=== PATIENT | male | born 1935 | race Caucasian/White ===

== ENCOUNTER 2016-08-12 13:14 | Emergency (ER) | payer OTHER ==
[~2016-08-12] VITALS: Ht 170.2 cm; Wt 68.5 kg
[~2016-08-12 13:14] MED LIST: ALLO100T PO; ASPI81 PO; BRIM0.2S EACH EYE; ENAL20TA81 PO; ENOX60P SQ; GABA300 PO; METO50TA PO; MEVA40TA PO; MORP30TA3 PO; NOVOLOGP2 SQ; NOVOLOGSS SQ; NOVONP2 SQ; PROS5TAB2 PO; TAMS0.4C67 PO; WARF2TAB PO
[2016-08-12 13:23] VITALS: BP 107/58; PULSE 72; RESP 16; TEMP 98.3; O2SAT 100
--- NOTE | 2016-08-12 13:53 | PD ---
HPI Chief Complaint: General Weakness Time Seen by Provider: 13:22 Travel History International Travel<30 days: No Contact w/Intl Traveler<30days: No Traveled to known affect area: No History of Present Illness HPI This patient complains of generalized weakness. Duration is 2-3 weeks. Severity is moderate. He denies fever or vomiting or diarrhea. He is not having headache or chest pain or abdominal pain. He has chronic A. fib on Coumadin. No alleviating factors. He has chronic leg swelling and has weeping from his right leg sore. PFSH Past Medical History Hx Anticoagulant Therapy: Yes Arthritis: Yes Atrial Fibrillation: Yes Blood Disorders: No Anxiety: Yes Depression: No Heart Rhythm Problems: Yes (A FIB) Cancer: No Cardiovascular Problems: Yes (htn on med, a-fib) High Cholesterol: Yes Congestive Heart Failure: No COPD: No Diabetes: Yes Patient Takes Glucophage: No Endocrine: No Gastrointestinal Disorders: No Gout: Yes Genitourinary: No Hepatitis: No Hiatal Hernia: No Hypertension: Yes Immune Disorder: No Implanted Vascular Access Dvce: Yes Musculoskeletal: Yes (ARTHRITIS) Neurologic: No Psychiatric: No Reproductive: No Respiratory: No Integumentary: Yes (hx of cellulitis) Thyroid Disease: No Tetanus Vaccination: < 5 Years Influenza Vaccination: Yes Past Surgical History Abdominal Surgery: Yes (SPINAL CORD STIMULATIOR IMPLANT, SARAH) AICD: No Body Medical Devices: SPINAL CORD STIMULATOR Cardiac Surgery: No Cholecystectomy: Yes Ear Surgery: No Endocrine Surgery: No Eye Surgery: No Genitourinary Surgery: No Gynecologic Surgery: No Joint Replacement: No Oral Surgery: No Pacemaker: No Thoracic Surgery: No Other Surgery: Yes Social History Alcohol Use: No (occas. beer) Tobacco Use: No Substance Use: No Allergies-Medications (Allergen,Severity, Reaction): Coded Allergies: Contrast Media (Verified Allergy, Severe, SWELLING, 08/12/16) Nifedipine (Verified Allergy, Severe, 08/12/16) unknown Reported Meds & Prescriptions Reported Meds & Active Scripts Active Novolin N (Insulin Isophane (Human)) 1 Ml Inj 4 Units SQ BID@,17 30 Days Lovenox (Enoxaparin Sodium) 60 Mg/0.6 Ml Inj 75 Mg SQ BID 7 Days Novolog Insulin Supplemental Scale (Insulin Aspart) 100 /Ml Inj 1 Units SQ ACHS SLIDING SCALE 30 Days Reported Brimonidine Tartrate 0.2 % Jen 1 Drop EACH EYE TID Proscar (Finasteride) 5 Mg Tab 5 Mg PO HS Metoprolol Tartrate 50 mg (Metoprolol Tartrate) 50 Mg Tab 50 Mg PO HS Metoprolol Tartrate 50 mg (Metoprolol Tartrate) 50 Mg Tab 100 Mg PO DAILY Novolog (Insulin Aspart) 100 Units/ML Inj 10 Units SQ DAILY Aspirin 81 Mg Tab 162 Mg PO DAILY Lovastatin 40 Mg Tab 40 Mg PO HS Warfarin Sodium 2 mg (Warfarin Sodium) 2 Mg Tab 2 Mg PO DAILY RESTART THIS SUNDAY Allopurinol 100 Mg Tab 50 Mg PO DAILY PRN Neurontin (Gabapentin) 300 Mg Cap 300 Mg PO HS Flomax (Tamsulosin HCl) 0.4 Mg Cap 0.4 Mg PO DAILY Oramorph Sr (Morphine Sulfate) 30 Mg Tab 30 Mg PO TIDPRN Vasotec (Enalapril Maleate) 20 Mg Tab 5 Mg PO DAILY Review of Systems General / Constitutional: No: Fever Eyes: No: Visual changes HENT: No: Headaches Cardiovascular: Positive: Irregular Rhythm, Edema, No: Chest Pain or Discomfort Respiratory: No: Shortness of Breath Gastrointestinal: No: Abdominal Pain Genitourinary: No: Dysuria Musculoskeletal: Positive: Weakness, Edema, No: Pain Skin: No Rash Neurologic: Positive: Weakness Psychiatric: No: Depression Endocrine: No: Polydipsia Hematologic/Lymphatic: No: Easy Bruising Physical Exam Narrative GENERAL: Well-nourished, well-developed patient in no apparent distress. SKIN: Focused skin assessment reveals no rash and nodules. Skin is Warm and dry. HEAD: Atraumatic. Normocephalic. EYES: Pupils equal and round. No scleral icterus. No injection or drainage. ENT: No nasal bleeding or discharge. Mucous membranes pink and moist. NECK: Trachea midline. No JVD. CARDIOVASCULAR: Irregularly irregular rhythm. No murmur appreciated. RESPIRATORY: No accessory muscle use. Clear to auscultation. Breath sounds equal bilaterally. GASTROINTESTINAL: Abdomen soft, non-tender, nondistended. Hepatic and splenic margins not palpable. MUSCULOSKELETAL: No obvious deformities. No clubbing. No cyanosis. Advanced pitting edema of the feet and lower legs up to the knee. Edema is symmetric. There is a shallow open area of skin breakdown on the back of the right lower leg leaking some clear serous fluid. NEUROLOGICAL: Awake and alert. No obvious cranial nerve deficits. Motor grossly within normal limits. Normal speech. PSYCHIATRIC: Appropriate mood and affect; insight and judgment normal. Data Data Last Documented VS Vital Signs Date Time Temp Pulse Resp B/P Pulse Ox O2 Delivery O2 Flow Rate FiO2 08/12/16 13:33 82 18 100 Room Air 08/12/16 13:23 98.3 107/58 Orders Iv Access Insert/Monitor (08/12/16 13:32) Complete Blood Count With Diff (08/12/16 13:32) Basic Metabolic Panel (Bmp) (08/12/16 13:32) Urinalysis - C+S If Indicated (08/12/16 13:32) Electrocardiogram (08/12/16 ) Prothrombin Time / Inr (Pt) (08/12/16 13:53) Cath For Specimen (08/12/16 14:55) Labs Laboratory Tests Test 08/12/16 08/12/16 14:15 15:02 White Blood Count 10.1 TH/MM3 Red Blood Count 3.54 MIL/MM3 Hemoglobin 10.9 GM/DL Hematocrit 32.0 % Mean Corpuscular Volume 90.4 FL Mean Corpuscular Hemoglobin 30.8 PG Mean Corpuscular Hemoglobin 34.0 % Concent Red Cell Distribution Width 13.5 % Platelet Count 262 TH/MM3 Mean Platelet Volume 7.6 FL Neutrophils (%) (Auto) 66.1 % Lymphocytes (%) (Auto) 20.1 % Monocytes (%) (Auto) 10.5 % Eosinophils (%) (Auto) 0.4 % Basophils (%) (Auto) 2.9 % Neutrophils # (Auto) 6.7 TH/MM3 Lymphocytes # (Auto) 2.0 TH/MM3 Monocytes # (Auto) 1.1 TH/MM3 Eosinophils # (Auto) 0.0 TH/MM3 Basophils # (Auto) 0.3 TH/MM3 CBC Comment DIFF FINAL Differential Comment Prothrombin Time 34.8 SEC Prothromb Time International 3.0 RATIO Ratio Sodium Level 135 MEQ/L Potassium Level 4.2 MEQ/L Chloride Level 97 MEQ/L Carbon Dioxide Level 28.0 MEQ/L Anion Gap 10 MEQ/L Blood Urea Nitrogen 21 MG/DL Creatinine 1.30 MG/DL Estimat Glomerular Filtration 53 ML/MIN Rate Random Glucose 183 MG/DL Calcium Level 8.4 MG/DL Urine Collection Type CLEAN CATCH Urine Color YELLOW Urine Turbidity CLEAR Urine pH 7.5 Urine Specific [place] 1.013 Urine Protein TRACE mg/dL Urine Glucose (UA) NEG mg/dL Urine Ketones NEG mg/dL Urine Occult Blood NEG Urine Nitrite NEG Urine Bilirubin NEG Urine Leukocyte Esterase NEG Urine Squamous Epithelial 0-5 /hpf Cells Urine Amorphous Sediment FEW Urine Hyaline Casts 0-2 /lpf Microscopic Urinalysis Comment CULT NOT INDICATED Urine Collection Time 1502 MDM Medical Decision Making Medical Screen Exam Complete: Yes Emergency Medical Condition: Yes Medical Record Reviewed: Yes Differential Diagnosis Electrolyte abnormality, cardiac arrhythmia, UTI Narrative Course I have reviewed the patient's electronic medical record. Patient was last here in January 2016 for hypoglycemia IV placed CBC shows minor anemia but otherwise normal Metabolic profile shows minimal abnormalities nothing requiring emergent treatment INR on Coumadin is 3.0 Urinalysis is clean Extended cardiac monitoring reveals A. fib with a rate in the 80s I reviewed his EKG which shows A. fib at 80s On recheck the patient is feeling well. His vitals are normal Recommending he hold his Coumadin for 2 days and restart on Sunday He is going to call his primary physician Sunday for follow-up His A. fib is chronic but rate controlled Recommending several things for his leg swelling but that's chronic and unchanged from usual Diagnosis Primary Impression: Generalized weakness Additional Impression: Leg edema Qualified Code: R60.0 - Bilateral edema of lower extremity Additional Instructions: Call physician on Sunday for follow-up Elevate legs Use low-sodium diet Wear knee-high compression stockings Be compliant with diuretics Use walker to assist with ambulation Med/Other Pt SpecificInfo: Other Disposition: DISCHARGE HOME Condition: Stable Curt Gillette MD Aug 12, 2016 13:53
[2016-08-12 14:23] LABS: AUTOMATED NEUTROPHIL # 6.7 TH/MM3 (1.8-7.7); BASOPHIL # 0.3 TH/MM3 (0-0.2); BASOPHIL % 2.9 % (0.0-2.0); EOSINOPHIL % 0.4 % (0.0-4.0); HEMO FLAGS DIFF FINAL; LYMPH % 20.1 % (9.0-44.0); MEAN CELL VOLUME 90.4 FL (80.0-100.0); MEAN CORPUSCULAR HEMOGLOBIN 30.8 PG (27.0-34.0); MONO % 10.5 % (0.0-8.0); NEUT % 66.1 % (16.0-70.0); PLATELET COUNT 262 TH/MM3 (150-450); RED BLOOD COUNT 3.54 MIL/MM3 (4.50-5.90); RED CELL DISTRIBUTION WIDTH 13.5 % (11.6-17.2); WHITE BLOOD COUNT 10.1 TH/MM3 (4.0-11.0)
[2016-08-12 14:30] VITALS: BP 111/65; PULSE 76; RESP 16
[2016-08-12 14:33] LABS: POTASSIUM 4.2 MEQ/L (3.5-5.1)
[2016-08-12 14:37] LABS: PROTHROMBIN TIME - PATIENT 34.8 SEC (9.8-11.6)
[2016-08-12 15:12] LABS: BLOOD, URINE NEG (NEG); GLUCOSE,URINE NEG (NEG); KETONE, URINE NEG (NEG); NITRITE,URINE NEG (NEG); PH, URINE 7.5 (5.0-8.5)
[2016-08-12 15:21] LABS: METHOD OF COLLECTION CLEAN CATCH
[2016-08-12 15:22] LABS: COMMENT (UR) CULT NOT INDICATED; CULTURE IF INDICATED CULT NOT INDICATED; HYALINE CAST, URINE 0-2 /lpf (RARE); SQUAMOUS EPITHELIAL CELL URINE 0-5 /hpf (0-5); URINE COLOR YELLOW (YELLW/STRAW)
[2016-08-12 15:30] VITALS: BP 117/70; PULSE 80; RESP 16; O2SAT 96
[2016-08-12] MEDS ORDERED: NOVONP2 SQ (16:04)
[2016-08-12] MEDS ORDERED: NOVOLOGP2 SQ (16:04)
[2016-08-12] MEDS ORDERED: MORP15TA73 PO (16:04)
[2016-08-12] MEDS ORDERED: ALLO100T PO (16:04)
[2016-08-12] MEDS ORDERED: VITA10002 PO (16:04)
[2016-08-12] MEDS ORDERED: TAMS0.4C4 PO (16:04)
[2016-08-12] MEDS ORDERED: PROS5TAB PO (16:04)
[2016-08-12] MEDS ORDERED: METF1000 PO (16:04)
[2016-08-12] MEDS ORDERED: MECL-62 PO (16:04)
[2016-08-12] MEDS ORDERED: LOVA40TA PO (16:04)
[2016-08-12] MEDS ORDERED: ENAL5TAB PO (16:04)
[2016-08-12] MEDS ORDERED: WARF4TAB51 PO (16:04)
[2016-08-12] MEDS ORDERED: METO50TA PO (16:04)
[2016-08-12] MEDS ORDERED: METO100T PO (16:04)
[2016-08-12] MEDS ORDERED: FURO1TAB62 PO (16:04)
[2016-08-12] MEDS ORDERED: GABA300C5 PO (16:04)
[2016-08-12] MEDS ORDERED: ASPI81TA11 PO (16:04)
[2016-08-12] MEDS ORDERED: CLOT1CRE TOPICAL (16:04)
[2016-08-12] MEDS ORDERED: MUPI2CRE3 TOPICAL (16:04)
[2016-08-12] MEDS ORDERED: BUME1TAB PO (16:04)
[2016-08-12 16:25] VITALS: BP 125/75
--- NOTE | 2016-08-12 18:49 | EKG ---
Date Performed: 08/12/2016 Time Performed: 13:13:10 PTAGE: 81 years EKG: Atrial fibrillation with PVC(s) or aberrant ventricular conduction. Left axis deviation LBB B Abnormal ECG PREVIOUS TRACING : 01/28/2016 17.43 Compared to prior tracing no significant change DOCTOR: Isabell Wynn Interpretating Date/Time 08/12/2016 18:48:16
== END 2016-08-12 16:28 | disposition home or self-care (01) ==
LOC: PHED 13:14
DX: R53.1 Weakness (principal); R60.0 Localized edema
CPT/HCPCS: 80048; 81001; 85025; 85610; 93005; 99285; P9612